=== PATIENT | female | born 1995 | race Caucasian/White ===

== ENCOUNTER 2021-02-25 20:36 | Emergency (ER) | payer OTHER ==
[~2021-02-25] VITALS: Ht 157.5 cm; Wt 101.0 kg
[2021-02-25 20:44] VITALS: BP 133/81
[2021-02-25] MEDS ORDERED: KETOROLAC 30 MG/1 ML IM ONE (23:00)
[2021-02-25] MEDS ORDERED: KETOROLAC 30 MG/1 ML ONE (23:38)
== END 2021-02-26 | disposition home or self-care (01) ==
LOC: ED 23:12
DX: S93.491A Sprain of other ligament of right ankle, initial encounter (principal); X50.1XXA Overexertion from prolonged static or awkward postures, initial encounter; Y93.89 Activity, other specified; Y92.410 Unspecified street and highway as the place of occurrence of the external cause; Y99.8 Other external cause status
CPT/HCPCS: 99283